=== PATIENT | male | born 1990 | race Caucasian/White ===

== ENCOUNTER 2021-03-04 08:02 | Emergency (ER) | payer SELFPAY ==
[~2021-03-04] VITALS: Ht 180.3 cm; Wt 64.5 kg
[~2021-03-04 08:02] MED LIST: DICY10CA88 PO; NO HOME MEDS
[2021-03-04 08:15] VITALS: BP 112/77
== END 2021-03-04 10:50 | disposition left against medical advice (07) ==
LOC: ER 08:02
DX: M54.2 Cervicalgia (principal); Z53.21 Procedure and treatment not carried out due to patient leaving prior to being seen by health care provider

== ENCOUNTER 2021-08-31 11:04 | Emergency (ER) | payer SELFPAY ==
[~2021-08-31] VITALS: Ht 180.3 cm; Wt 68.2 kg
[2021-08-31 11:08] VITALS: BP 144/84
[2021-08-31] MEDS ORDERED: PENI250T2 PO (11:13)
[2021-08-31] MEDS ORDERED: NAPR-56 PO (11:13)
== END 2021-08-31 11:43 | disposition home or self-care (01) ==
LOC: ER 11:04
DX: K08.89 Other specified disorders of teeth and supporting structures (principal); R06.02 Shortness of breath; R50.9 Fever, unspecified; K02.9 Dental caries, unspecified; R59.0 Localized enlarged lymph nodes; G89.29 Other chronic pain; Z79.2 Long term (current) use of antibiotics; Z79.899 Other long term (current) drug therapy; Z86.19 Personal history of other infectious and parasitic diseases
CPT/HCPCS: 99283